=== PATIENT | female | born 1965 | race Caucasian/White ===

== ENCOUNTER 2022-03-12 06:24 | Day surgery (SDC) | payer MEDICAID ==
[~2022-03-12] VITALS: Ht 160 cm; Wt 83.9 kg
[2022-03-12] MEDS ORDERED: SIMETHICONE 40 MG/0.6 ML ML ONE (06:32)
[2022-03-12] MEDS ORDERED: MEPERIDINE 100 MG INJ. 100 MG/ML VIAL ONE (06:33)
[2022-03-12] MEDS: MIDAZOLAM HCL 5 MG/5 ML VIAL ONE ×2 (07:30→07:39)
[2022-03-12 12:00] VITALS: BP_SYST 115
== END 2022-03-12 09:15 | disposition home or self-care (01) ==
LOC: SDS 06:24 → SMU 06:25 → SDS 09:15
PROVIDERS: ATTEND Internal Medicine Gastroenterology
DX: Z12.11 Encounter for screening for malignant neoplasm of colon (principal); K64.9 Unspecified hemorrhoids; Z79.899 Other long term (current) drug therapy; Z20.822 Contact with and (suspected) exposure to COVID-19
CPT/HCPCS: 36415; 45378; 82962; 99152; 99153; U0003; G0378; J2250; J2175